=== PATIENT | female | born 1950 | race Caucasian/White ===

== ENCOUNTER 2023-09-14 08:30 | Outpatient (RCR) | payer MEDICARE, SELFPAY ==
--- NOTE | 2023-08-31 10:06 | PT.OPEX ---
[facility] [place] [facility] Eval PT [facility] Outpatient Eval Start: 08/31/23 07:24 Freq: Status: Active Protocol: Document 08/31/23 07:25 TOBIAS (Rec: 08/31/23 07:32 CLJessie [id number]) E-signed By Deonna Henning PT Physical Therapy Outpatient Evaluation Insurance Information Recert Due Date 11/25/23 Insurance Name [facility] Medical Diagnosis Genital Prolapse PFM Weakness Treating Diagnosis Cystocele/Bladder Prolapse PFM weakness Hip EXT/ABD/ER mm weakness Urinary Incontinence Referring MD [place]unaway Subjective Subjective Dolores reports having issues with sensation of heaviness and extra pressure at vaginal area with attempting to urinate. She denies any bowel issues, has a normal BM every day or every 2 days. She only occasionally will have an issue with incontinence, more of a feeling or urgency to urinate once the thought crosses her mind. She does wear a panty liner, but it usually remains dry. She gets up to urinate 1-2X/Night, can hold her urine normally about 2 hours. She has had 2 children, both delivered vaginally, no complications. She previously exercised 4X/Wk playing [employer] for about 45 min each. Because it was so hot this year, she did not ex as much. Is interested in learning some ex. She does drink coffee, only 1 cup per day, no alcohol or soda's. She drinks about 40-50 oz of water per day. No report of pain. Pain Comments Denies having pain Lt knee weakness, but no buckling or pain. She just doesn't trust it as much, difficult to sit to stand and put extra weight on her knees. She does A/D stairs reciprocally. Date of Last Physician Visit 08/23/23 Current Work Status Retired Precautions Treatment Precautions/Contraindications Hysterectomy Endometrial CA Atrial Fib Assessment Assessment/Impression 73 yo with DX of PFM Weakness and Bladder Prolapse. She presents with slightly reduced lumbar lordosis. She has no significant gait deviation. Good trunk AROM, reduced SLS Lt LE 5 second average. She is unable to sit to stand without use of at least one arm on chair arm, c/o feeling unstable in Lt knee. Her third and fourth attempt of sit to stand were without use of UE on chair. She has impaired strength at damien hip ABD/EXT/ER MMT score of 3+/5 damien. IND in bed mobility, ambulates without any AD. She is independent in all of her home chores and ADL's. She denies having more than occasional incontinence, but reports symptoms of urge urinary stress and sensation of prolapse. She does not have the sensation of falling out but states she does feel a heaviness and sometimes has a difficult time initiating a stream of urine. She will benefit from continued skilled physical therapy to educate in proper bladder health and food irritants, progressive core and pelvic/hip stability and strength and endurance tasks. An internal assessment will be completed at our next session. Thank you for this referral. Plan of Care Rehabilitation Potential Good Physical Therapy Goals In 8-10 visits, Dolores will be able to report: 1. Ability to HOLD urine for an average of 90 min 2. Ability to suppress Urge to urinate and not devine to the bathroom at least 30% of the time. 3. Report ability to consciously breath while lifting or sit to stand transition (avoid holding breath and increasing abdominal pressure) 4. Dry panty liner 5 days out of 7 5. IND in proper execution of entire HEP with emphasis on HOLD, alignmetn and reps 6. PFM strength score of at least 3/5/5//5 Coordination/Communication With Referral Source Treatment Plan/Direct Interventions Joint Mobilization,Manual Therapy,Neuromuscular Re-ed, Self-Care/Home Management, Therapeutic Activities, Therapeutic Exercises Frequency/Duration 1X/Wk for 10 days Patient Will Be Discharged From Therapy Completion of LTG(s),Skills Plateau,Independent w/HEP, Independently Progressing Evaluation Billing Untimed Code Treatment Minutes 32 Complexity Moderate Certification Information Initial Certification Date 08/31/23 Ending Certification Date 11/25/23 Provider Signature Shows Agreement With POC & Medical Necessity Physician Signature & Date Requested Please Sign/Date Here Physician Comment/Change : Physician NPI Number #
== END 2024-01-12 23:59 | disposition home or self-care (01) ==
PROVIDERS: PCP Internal Medicine; Visit Provider Obstetrics & Gynecology
DX: N81.89 Other female genital prolapse (principal); N81.10 Cystocele, unspecified; M62.81 Muscle weakness (generalized); R32 Unspecified urinary incontinence; Z51.89 Encounter for other specified aftercare
CPT/HCPCS: 97110; 97140; 97162; 97535

== ENCOUNTER 2023-10-05 08:42 | Outpatient (CLI) | payer MEDICARE, SELFPAY | END 2023-10-05 08:43 | disposition home or self-care (01) | LOC: NFLDREF 10-06 06:36 | PROVIDERS: PCP Internal Medicine; Referring Provider Internal Medicine; Visit Provider Internal Medicine | DX: E78.5 Hyperlipidemia, unspecified (principal) | CPT/HCPCS: 80061 ==

== ENCOUNTER 2023-10-12 11:14 | Outpatient (CLI) | payer MEDICARE, SELFPAY | END 2023-10-12 11:15 | disposition home or self-care (01) | LOC: NFLDREF 11:15 | PROVIDERS: PCP Internal Medicine; Visit Provider Internal Medicine | DX: M85.80 Other specified disorders of bone density and structure, unspecified site (principal) | CPT/HCPCS: 82306 ==

== ENCOUNTER 2023-11-05 13:35 | Outpatient (CLI) | payer MEDICARE, SELFPAY ==
--- NOTE | 2023-11-05 13:40 | CRLHL7_ITS ---
For Patients: As a result of the Cures Act, medical imaging exams and procedure reports are released immediately into your electronic medical record. You may view this report before your referring provider. If you have questions, please contact your health care provider. BILATERAL SCREENING MAMMOGRAM WITH COMPUTER-AIDED DETECTION AND TOMOSYNTHESIS TECHNIQUE: CC and MLO views were obtained. These mammographic images have been obtained using full-field digital technique. These mammographic images were interpreted with the benefit of computer-aided detection. Breast Tomosynthesis was used in this interpretation. COMPARISON FILM: 10/15/20, 05/25/18, 05/21/17. FINDINGS: There are scattered areas of fibroglandular density IMPRESSION: There is no radiographic evidence for malignancy. ASSESSMENT: BI-RADS Category 1: Negative RECOMMENDATION: Routine screening mammogram in 1 year. A lay language report of this examination will be provided to the patient. Nabor Arce M.D. Diagnostic Radiologist [email or web address] Transcribed: 4:40 p.mRahul garg/Dictated by: Nabor Arce MD @ 11/09/2023 8:53:00 AM (Electronically Signed)
== END 2023-11-05 13:36 | disposition home or self-care (01) ==
LOC: MAMMO 13:35
PROVIDERS: PCP Internal Medicine; Visit Provider Internal Medicine
DX: Z12.31 Encounter for screening mammogram for malignant neoplasm of breast (principal)
CPT/HCPCS: 77063; 77067

== ENCOUNTER 2025-03-16 09:40 | Outpatient (CLI) | payer MEDICARE, SELFPAY | END 2025-03-16 09:41 | disposition home or self-care (01) | LOC: NFLDREF 03-17 07:57 | PROVIDERS: PCP Internal Medicine; Referring Provider Internal Medicine; Visit Provider Internal Medicine | DX: M85.80 Other specified disorders of bone density and structure, unspecified site (principal); Z13.1 Encounter for screening for diabetes mellitus | CPT/HCPCS: 82306; 82947 ==

== ENCOUNTER 2025-04-04 12:51 | Outpatient (CLI) | payer MEDICARE, SELFPAY ==
--- NOTE | 2025-04-04 13:30 | CRLHL7_ITS ---
For Patients: As a result of the Century Cures Act, medical imaging exams and procedure reports are released immediately into your electronic medical record. You may view this report before your referring provider. If you have questions, please contact your health care provider. XR DXA Bone Mineral Density (BMD) Reason for exam: Other specified disorders of bone density. Current height (inches): 63.0 Weight (lbs.): 196.0 Menopause age: 54 Ethnicity: White 1. Have you had a previous hip or vertebral fracture? No. 2. Have you had any fractures during your adult life which did not result from significant trauma (e.g., auto accident)? No. 3. Did either of your parents have a hip fracture? No. 4. Do you smoke? No. 5. Have you ever taken Glucocorticoids? No. 6. Do you have rheumatoid arthritis? No. 7. Do you have secondary osteoporosis? No. 8. Do you drink 3 or more alcoholic drinks per day? No. 9. Are you being treated for osteoporosis? No. 10. Have you ever taken any of the following medications: Actonel, Evista, Fosamax, Miacalcin, Reclast, Boniva, Forteo, HRT (i.e., estrogen/hormone therapy), Protelos, Prolia, Vitamin D, Calcium, other ??? please specify. ANSWER: Yes; vitamin D. 11. Do you have any of the following medical conditions: Anorexia or bulimia, asthma or emphysema, end stage renal disease, hyperparathyroidism, any seizure disorders, cancer, inflammatory bowel diseases, hysterectomy, other ??? please specify. ANSWER: Yes; uterine cancer, hysterectomy. 12. What was your maximum height (inches)? 64. 13. Do you perform weightbearing exercise regularly? No. 14. Do you regularly consume dairy products? Yes. 15. Do you drink caffeinated beverages? No. 16. At what age did your period start? 11. 17. Are you premenopausal? No. 18. How many full-term pregnancies have you had? 2. 19. Have you ever missed your period for more than 6 months in a row (not including or menopause)? No. TECHNIQUE: Bone mineral density study was performed using the [employer]. FINDINGS: The results of the study expressed as bone mineral density (BMD) are as follows: Lumbar Spine L1 to L4: BMD: 0.986 g/cm2. T-score: -0.6. Z-score: 1.9. Neck Left: BMD: 0.712 g/cm2. T-score: -1.2. Z-score: 0.9. Right: BMD: 0.668 g/cm2. T-score: -1.6. Z-score: 0.5. Total Left: BMD: 0.864 g/cm2. T-score: -0.6. Z-score: 1.2. Right: BMD: 0.853 g/cm2. T-score: -0.7. Z-score: 1.1. IMPRESSION: Osteopenia. COMPARISON: Compared with scan of 08/13/2021, the bone mineral density has increased by 2.0% at the spine and increased by 2.5% at the hip. *Comparison exams done prior to 04/2020 were performed on different unit, [employer]. FRAX 10-year Fracture Risk Major Osteoporotic Fracture: 11% Hip Fracture: 2.4% Reported Risk Factors: [place] () Neck BMD = 0.668, BMI = 34.7. NABOR BROWNLEE M.D. Diagnostic Radiologist [email or web address] Transcribed: 12:[address]/Dictated by: Nabor Brownlee MD @ 04/05/2025 8:53:00 AM (Electronically Signed)
== END 2025-04-04 12:52 | disposition home or self-care (01) ==
LOC: RAD 12:52
PROVIDERS: PCP Internal Medicine; Visit Provider Internal Medicine
DX: M85.80 Other specified disorders of bone density and structure, unspecified site (principal); M85.89 Other specified disorders of bone density and structure, multiple sites
CPT/HCPCS: 77080

== ENCOUNTER 2025-07-04 13:12 | Outpatient (CLI) | payer MEDICARE, SELFPAY ==
--- NOTE | 2025-07-04 13:20 | CRLHL7_ITS ---
For Patients: As a result of the Century Cures Act, medical imaging exams and procedure reports are released immediately into your electronic medical record. You may view this report before your referring provider. If you have questions, please contact your health care provider. INDICATION: BILATERAL SCREENING MAMMMOGRAM, ASYMPTOMATIC 75 Y/O FEMALE COMPARISON: 11/05/2023, 10/15/2020, 05/25/2018 TECHNIQUE: Digital mammogram in CC and MLO projections including computer-aided detection (CAD) and tomosynthesis. BREAST COMPOSITION: There are scattered areas of fibroglandular density. FINDINGS: No suspicious findings. ASSESSMENT: BI-RADS 1 Negative RECOMMENDATION: Annual screening mammogram. A lay language report of this examination will be provided to the patient. Dictated by: Nabor Arce MD @ 07/05/2025 09:18:44 (Electronically Signed)
== END 2025-07-04 13:13 | disposition home or self-care (01) ==
LOC: MAMMO 13:12
PROVIDERS: PCP Internal Medicine; Visit Provider Internal Medicine
DX: Z12.31 Encounter for screening mammogram for malignant neoplasm of breast (principal)
CPT/HCPCS: 77063; 77067

== ENCOUNTER 2025-10-01 11:01 | Outpatient (CLI) | payer MEDICARE, SELFPAY | END 2025-10-01 11:02 | disposition home or self-care (01) | LOC: NFLDREF 10-05 10:30 | PROVIDERS: PCP Internal Medicine; Referring Provider Internal Medicine; Visit Provider Internal Medicine | DX: I10 Essential (primary) hypertension (principal) | CPT/HCPCS: 80048 ==

== ENCOUNTER 2025-10-21 15:31 | Observation (INO) | payer MEDICARE, SELFPAY ==
--- OUTSIDE RECORDS SUMMARY | 2025-10-21 15:34 | XMS_ITS | Clinical Summary ---
Author Organization [facility] Address [address] [address] Phone Care Team Providers Care Catalogue Illustrator Name Role Phone Elsewhere, Pcp Primary Care Provider Unavailabl e Allergies Active AllergyReactionsCriticalityNoted DateCommentsAmoxicillin-Pot Clavulanate NddahhtnJcvpuz32/29/2023 Facial swelling, itching Medications No known medications Social History Tobacco UseTypesPacks/DayYears UsedDateSmoking Tobacco: NeverSmokeless Tobacco: Never Tobacco Cessation:Counseling Given: Not Answered CommentsUnknownSex and Gender InformationValueDate RecordedSex Assigned at BirthNot on fileLegal FfyJpdjnt01/29/2023 11:02 AM CDTGender IdentityNot on fileSexual OrientationNot on file Last Filed Vital Signs Vital SignReadingTime TakenCommentsBlood Fbdfdinc626/80008/06/2023 11:15 AM CDT Gsrus755708/06/2023 11:15 AM QECNytedehmcip46.2 ??C (98.9 ??F)08/06/2023 11:15 AM CDTRespiratory Fwgh052108/06/2023 11:15 AM CDTOxygen Hsvtcbyvvj09%08/06/2023 11:15 AM CDTInhaled Oxygen Concentration--Gotkri73.1 kg (196 lb 6.9 oz)08/06/2023 11:15 AM CDTHeight--Body Mass Index-- Plan of Treatment Health MaintenanceDue DateLast DoneCommentsMEDICARE [id number] (Standing Order)01/26/1968TETANUS (Standing Order)01/26/1968Pneumococcal Vaccine: 50+ yrs (Standing Order) (1 of 1 - PCV)1999Shingrix (Zoster recombinant) vaccine (Standing Order) (1 of 2)1999DXA,FEMALES AGE 65 OR JWDJNEO7401/25/2014RSV Vaccination (60+ yrs) (Abrysvo/Arexvy) (1 - 1-dose 75+ series)4COVID-19 Single Dose07/09/2025Influenza Vaccine Seasonal (Standing Order) (#1)2025HPV Vaccine (Standing Order)Aged OutNo longer eligible based on patient's age to complete this topicHepatitis B Vaccine (Standing Order)Aged OutNo longer eligible based on patient's age to complete this topic Insurance Care Teams Team MemberRelationshipSpecialtyStart DateEnd Date Elsewhere, Pcp PCP - General08/06/23
[2025-10-21 15:52] VITALS: BP 153/104; PULSE 79; RESP 18; TEMP 36.8; O2SAT 96
--- NOTE | 2025-10-21 17:37 | ED_ITS ---
HPI - General Adult General Time Seen by Provider: 17:37 Date Seen: 10/21/25 Chief complaint: Dizziness/Vertigo Stated complaint: lighted headed Time Seen by Provider: 10/21/25 17:32 Source: patient, RN notes reviewed and old records reviewed Mode of arrival: ambulatory Limitations: no limitations History of Present Illness HPI narrative: This 75-year-old female is coming in with concern of sense of dizziness lightheadedness in feeling of imbalance. Earlier on Wednesday she would of maybe said she felt like she could fall over but isn't feeling that now. She h as a feeling of imbalance even just lying there. Earlier her eyes maybe felt like there were fuzzy but she can not say that there is really any change in vision now, no double vision. Her speech has been normal, she is been able to ambulate and function. Her symptoms have been present over a week. She was in the office for hypertension on October 02 for follow-up of a diagnosis of hypertension from August. Valsartan and hydrochlorothiazide were started on 08/23/2025. Very remote history of smoking in her early 20s. The note from October 02 was reviewed. She notes at times she will feel her heart pounding, not irregular, maybe some heaviness. She notes no shortness of breath, no cough or cold symptoms. She has not been ill, no fevers. She has hypertension, prediabetes, history of endometrial cancer status post hysterectomy, osteopenia, vitiligo, obesity, hemangioma of liver, history of uveitis, history of sarcoidosis, history of atrial fibrillation. Her BMP was checked in follow-up on October 01, no concerns. Related Data Home Medications ?Medication ?Instructions ?Recorded ?Confirmed Lactobacillus acidophilus PO .QD 08/09/23 10/02/25 calcium carb-magnesium ox,carb PO .QD 08/09/2310/02/ 5 [Devon-Mag] magnesium glycinate mg PO 08/08/25 10/02/25 vitamin B complex 1 tab PO QDAY 08/08/2510/21 vitamin D3 125 mcg (5,000 cap PO 08/23/25 10/02/25 unit)-vitamin K2 100 mcg capsule Previous Rx's ?Medication ?Instructions ?Recorded valsartan 80 1 tab PO QDAY #90 tabs 08/23 mg-hydrochlorothiazide 12.5 mg tablet Allergies Allergy/AdvReac Type Severity Reaction Status Date / Time hazelnut Allergy Severe Difficulty Verified 10/21/25 15:58 Breathing amoxicillin (From Augmentin) Allergy Mild Rash Verified 10/21/25 15:58 clavulanic acid (From Allergy Mild Rash Verified 10/21/25 15:58 Augmentin) Review of Systems Status of ROS: Reports: 6 or more systems reviewed and unremarkable except as noted in History and below [facility] (Updated 10/21/25 @ 22:16 by Moiz De Jesus MD) Hemangioma of liver (2013) ?D18.03 - Hemangioma of intra-abdominal structures (ICD-10) Obesity with body mass index 30 or greater ?E66.9 - Obesity, unspecified (ICD-10) Vitiligo ?L80 - Vitiligo (ICD-10) Osteopenia ?M85.80 - Other specified disorders of bone density and structure, unspecified site (ICD-10) History of endometrial cancer ?Z85.42 - Personal history of malignant neoplasm of other parts of uterus (ICD-10) Pelvic floor weakness in female ?N81.89 - Other female genital prolapse (ICD-10) Pre-diabetes ?R73.03 - Prediabetes (ICD-10) Essential hypertension ?I10 - Essential (primary) hypertension (ICD-10) History of uveitis (2003) ?Z86.69 - Personal history of other diseases of the nervous system and sense organs (ICD-10) History of sarcoidosis (2003) ?Z86.2 - Personal history of diseases of the blood and blood-forming organs and certain disorders involving the immune mechanism (ICD-10) History of atrial fibrillation (2013) ?Z86.79 - Personal history of other diseases of the circulatory system (ICD- 10) Surgical History History of lymph node biopsy (2007) ?Z98.890 - Other specified postprocedural states (ICD-10) History of hysterectomy (2018) ?Z90.710 - Acquired absence of both cervix and uterus (ICD-10) History of blepharoplasty (06/2018) ?Z98.890 - Other specified postprocedural states (ICD-10) Family History Paternal Grandmother Breast cancer Mother Diabetes Heart disease Father Diabetes Prostate cancer Social History Narrative: Lives alone in own apartment. Retired. . Supportive daughter, Shaylee, and son, Matt, both of whom she delegates to speak on her behalf for her healthcare if she is unable to do so. On admission to hospital 10/21/2025 she indicates that under the current circumstances she desires full resuscitation in event of cardiopulmonary demise if witnessed, but does not want to be kept alive in a persisted vegetative state. What is your current living situation?: I presently have a place to live In the past 12 months, utilities in danger of being shut off: no In past 12 months, lack of transportation kept you from medical appts, meetings, work, or getting things needed for daily living: no In the past 12 mos, have been you worried that your food would run out before you had money to buy more?: never true In the past 12 mos, the food you bought just didn't last and you didn't have money to buy more?: never true How often does anyone, including family, friends and others, physically hurt you : never How often does anyone, including family, friends and others, insult or talk down to you: never How often does anyone, including family, friends and others, threaten you with harm: never How often does anyone, including family, friends and others, scream or curse at you: never Exam Const: Vital Signs, click to edit/add: Vital Signs - 24 hr 10/21/25 15:52 10/21/25 18:05 10/21/25 19:38 Temperature 98.3 F Pulse Rate [Left P ulse Oximeter] 79 63 Respiratory Rate 18 18 Blood Pressure [Le ft Forearm] 153/104 H 142/96 H Pulse Oximetry 96 96 96 Oxygen Delivery Me thod Room Air Room Air This 75-year-old female is alert, interactive, no apparent distress. She is s een in exam room 2. Pupils equal round reactive, sclera clear, extraocular movements intact. On range of motion of her eyes, head impulse, cannot induce any symptoms. She has symmetrical facial function, speech is normal. Neck supple, no jugular venous distension, no adenopathy, no thyromegaly masses or nodules. She is able to sit up, no truncal ataxia. Lungs are clear, good air entry, wheezing or crackles, no tachypnea, no accessory muscle use. CV regular rate and rhythm, soft short systolic murmur heard right upper sternal border, 1 to 2/6, normal S1-S2. Abdomen is soft, nontender, nondistended, no organomegaly, rebound or guarding. Patient was ambulatory into the ED of her own accord. Strength is 5/5 and symmetric, no dysmetria noted on [id number], no arm drift. No tremors. No sensory changes noted on light touch sensation Documenting provider has reviewed patient's vital signs: yes Course Course ED Course: And does technically have This patient is presenting with lightheadedness/dizziness and sense of imbalance over week. She does have pre diabetes, hypertension and does technically have hyperlipidemia from a cholesterol panel in 2022. Her hemoglobin A1c was 6.2 in March of this year. I do think we need to look at head CT and CT angiograms of her head and neck to rule out subacute changes. Will talk to Neurology but do not need to do a stroke code given the timing being a week of symptoms. We do need to look at her labs. She has been on valsartan/hydrochlorothiazide do need to look at electrolytes and renal function. Will also do a thyroid on her. She had a normal highly sensitive troponin in triage, EKG looks reassuring. Will have her on cardiac monitoring looking for arrhythmia, pulse oximetry for hypoxia while here. She is hemodynamically stable at this time, nonfocal exam. Consultations Consultation #1: Have spoken to Dr. Le. She recommends that the patient have MR imaging done tomorrow, whether it be inpatient or outpatient. She states that the posterior circulation with the cerebellum can be extremely difficult to see on CT imaging. Patient does have risk factors and I do see history of atrial fibrillation in her chart. I do not see how she can conceivably get an outpatient MR done tomorrow, there is no way to have that ordered. She has subsequently decided to stay. Time: 20:44 Consultation #2: Have spoken to our hospitalist Dr. De Jesus, does agree to observe for MR in am. Did discuss with patient after and she was wanting to go home, she feels better than when she first came. She is going to call her daughter and talk about this. She is understanding that the MR brain is still going to recommended and that she will need to try to get this done outpatient, it may be missed for days in that scenario. Time: 21:05 Vital Signs Vital signs: Initial Vital Signs Temperature 98.3 F 10/21/25 15:52 Temperature Source Temporal Artery Scan 10/21/25 15:52 Pulse Rate 79 10/21/25 15:52 Pulse Rhythm Regular 10/21/25 15:52 Pulse Strength 3+ Normal 10/21/25 15:52 Respiratory Rate 18 10/21/25 15:52 Blood Pressure 153/104 H 10/21/25 15:52 Blood Pressure Mean 120 H 10/21/25 15:52 Blood Pressure Position Sitting 10/21/25 15:52 Pulse Oximetry 96 10/21/25 15:52 Oxygen Delivery Method Room Air 10/21/25 15:52 Vital Signs Temperature 98.3 F 10/21/25 15:52 Pulse Rate 79 10/21/25 15:52 Respiratory Rate 18 10/21/25 15:52 Blood Pressure 153/104 H 10/21/25 15:52 Pulse Oximetry 96 10/21/25 15:52 Oxygen Delivery Method Room Air 10/21/25 15:52 Temperature 98.3 F 10/21/25 15:52 Pulse Rate 63 10/21/25 19:38 Respiratory Rate 18 10/21/25 19:38 Blood Pressure 142/96 H 10/21/25 19:38 Pulse Oximetry 96 10/21/25 19:38 Oxygen Delivery Method Room Air 10/21/25 19:38 Medications Administered Medications: Discontinued Medications Generic Name Dose Route Start Last Admin Trade Name Freq PRN Reason Stop Dose Admin Aspirin 324 mg 10/21/25 21:58 10/21/25 22:23 Aspirin 81 Mg Tab.Chew PO 10/21/25 21:59 324 mg ONCE ONE Administration Medical Decision Making Lab Data Lab results reviewed: Yes I reviewed the patient's lab results Labs: Lab Results 10/21/25 10/21/25 Range/Units 16:06 18:05 WBC 5.71 (4.50-11.00) K/uL RBC 4.41 (4.00-5.20) m/uL Hgb 12.5 (12.0-16.0) gm/dL Hct 37.6 (33.0-51.0) % MCV 85 (80-100) fL MCH 28 (26-34) pg MCHC 33 (32-36) gm/dL RDW Coeff of Terrence 13.0 (11.5-15.5) % Plt Count 191 (140-440) K/uL Neut % (Auto) 69.3 (42.0-72.0) % Lymph % (Auto) 19.1 L (20-44) % [place] % (Auto) 9.1 (0.0-11.0) % Eos % (Auto) 1.9 (0.0-7.0) % Baso % (Auto) 0.4 (0.0-3.0) % Neut # (Auto) 3.96 (1.7-7.0) K/uL Lymph # (Auto) 1.10 (0.90-2.90) K/uL [place] # (Auto) 0.50 (0.00-0.90) K/UL Eos # (Auto) 0.11 (0.00-0.50) K/uL Baso # (Auto) 0.02 (0.00-0.30) K/uL Abs Immat Gran (auto) 0.01 (0.00-0.30) K/uL Imm/Tot Granulo (auto) 0.2 % Sodium 135 (135-149) mmol/L Potassium 3.8 (3.6-5.1) mmol/L Chloride 102 (96-114) mmol/L Carbon Dioxide 28 (20-32) mmol/L Anion Gap 5 L (7-15) mEq/L BUN 18 (7-30) mg/dL Creatinine 0.6 (0.5-1.5) mg/dL Estimated GFR 93 ml/min Glucose 108 (60-115) mg/dL Calcium 9.6 (8.4-10.6) mg/dL Magnesium 2.0 (1.5-2.6) mg/dL Total Bilirubin 0.5 (0.1-1.5) mg/dL AST 26 (12-35) U/L ALT 19 (4-35) U/L Alkaline Phosphatase 86 (40-150) U/L Troponin I < 0.01 (0.01-0.04) ng/mL POC Troponin I High Sensi 3.9 (2.9-13.0) pg/mL C-Reactive Protein 1.3 H (0.5-1.0) mg/dL Total Protein 7.4 (6.0-8.3) g/dL Albumin 4.3 (3.3-5.0) g/dL TSH 1.050 (0.270-4.200) uIU/mL Lab Acknowledgement Test Added POC Creatinine 0.8 (0.6-1.3) mg/dl Imaging Data CT scan - head: Attestation: I have reviewed the pertinent imaging results. Radiologist's impression: Patient: ADRIANNA FERNANDES Facility:?[facility] Patient ID:?[id number] Site Patient ID:?[id number]. Site :?1950 Study:?CT-Head WO-10/21/2025 6:33:15 PM Ordering Physician:?Feliciano Vidal Final Report: INDICATION: Dizziness TECHNIQUE: Head CT without contrast. COMPARISON: None. FINDINGS: Brain: No evidence of an acute territorial infarction or acute intracranial hemorrhage. There are a few foci of hypoattenuation in the periventricular white matter, most likely reflecting mild chronic microvascular ischemic changes. There is a curvilinear calcification anterior to the frontal horn of the right lateral ventricle on series 5, image 25. This is nonspecific and no prior imaging is available for comparison. The sulci and ventricles are appropriate for a patient of this age. No hydrocephalus, midline shift or herniation. Orbits: No acute abnormality. There is a linear calcification along the posterior aspect of the right orbit on series 5, image 16. Paranasal sinuses and mastoid air cells: There is a retention cyst in the left maxillary sinus. The paranasal sinuses and mastoid air cells are otherwise clear. Calvarium: No evidence of a calvarial fracture. IMPRESSION: 1. No acute intracranial abnormality. 2. Curvilinear calcification anterior to the frontal horn of the right lateral ventricle. This is nonspecific, but likely chronic in nature. If further evaluation of the head is required, an MRI of the brain is recommended. 3. There is also a linear calcification along the posterior aspect of the right orbit. This is also likely chronic. Correlation with any prior outside imaging, if available, is recommended. Please note that all CT scans at this facility use dose modulation, iterative reconstruction, and/or weight-based dosing when appropriate to reduce radiation dose to as low as reasonably achievable. Dictated by Anjel Watts MD @ 10/21/2025 6:40:12 PM (Electronic Signature) CT- Other: Attestation: I have reviewed the pertinent imaging results. Radiologist's impression: Patient: ADRIANNA FERNANDES Facility:?[facility] Patient ID:?[id number] Site Patient ID:?[id number]. Site :?1950 Study:?CT-Head Angio CTA HEAD AND NECK W ISOVUE 370-10/21/2025 6:34:47 PM Ordering Physician:?Feliciano Vidal Preliminary Report: Prelim report: No significant stenosis. No evidence of an aneurysm. There is a curvilinear calcification anterior to the frontal horn of the right lateral ventricle on series 5, image 259. This is nonspecific. There are pulmonary nodules in the upper lobes and mediastinal lymphadenopathy in the partially visualized upper chest, for example on series 5, image 890. Dictated by Anjel Watts MD @ 10/21/2025 6:53:56 PM Read by:?Anjel Watts MD @10/21/2025 6:54:49 PM ECG Data Attestation: I personally reviewed and interpreted this ECG as follows: (In the normal sinus rhythm, 75 beats per minute. No ischemia, no infarct.) Prior ECG tracings: not available for review Discharge Plan Discharge Clinical Impression: Dizziness, Imbalance Patient Disposition: Admitted As Observation Discharge Location: [facility]
--- NOTE | 2025-10-21 17:49 | CRLHL7_ITS ---
For Patients: As a result of the Century Cures Act, medical imaging exams and procedure reports are released immediately into your electronic medical record. You may view this report before your referring provider. If you have questions, please contact your health care provider. INDICATION: Dizziness, imbalance. TECHNIQUE: CTA head using intravenous contrast with bolus tracking, 3D angiographic rendering using maximum intensity projection (MIP) and images permanently archived. CTA neck using intravenous contrast with bolus tracking, 3D angiographic rendering using maximum intensity projection (MIP) and images permanently archived. FINDINGS: CTA head: There is normal opacification of the intracranial vasculature. There is no large vessel occlusion or significant intracranial stenosis. No aneurysm is identified. CTA neck: There is no significant carotid artery stenosis or dissection. There is no significant vertebral artery stenosis or dissection. There are numerous indeterminate nodules in the visualized lung apices. There is soft tissue thickening about both jazmyn and in the mediastinum primarily around the trachea, sub tracheal region. Scattered axillary lymph nodes also noted. IMPRESSION: No acute intracranial abnormality at CTA. No significant carotid or vertebral artery stenosis or dissection. Numerous pulmonary nodules, bilateral hilar and mediastinal soft tissue/lymphadenopathy. Recommend dedicated chest imaging for further evaluation. Please note that all CT scans at this facility use dose modulation, iterative reconstruction, and/or weight-based dosing when appropriate to reduce radiation dose to as low as reasonably achievable. Dictated by Elder Landry MD @ 10/21/2025 7:34:06 PM (Electronically Signed)
--- NOTE | 2025-10-21 17:50 | CT_ITS ---
Patient: ADRIANNA FERNANDES Facility:?[facility] Patient ID:?[id number] Site Patient ID:?[id number]. Site :?1950 Study:?CT-Head WO-10/21/2025 6:33:15 PM Ordering Physician:Padmini Vidal Final Report: INDICATION: Dizziness TECHNIQUE: Head CT without contrast. COMPARISON: None. FINDINGS: Brain: No evidence of an acute territorial infarction or acute intracranial hemorrhage. There are a few foci of hypoattenuation in the periventricular white matter, most likely reflecting mild chronic microvascular ischemic changes. There is a curvilinear calcification anterior to the frontal horn of the right lateral ventricle on series 5, image 25. This is nonspecific and no prior imaging is available for comparison. The sulci and ventricles are appropriate for a patient of this age. No hydrocephalus, midline shift or herniation. Orbits: No acute abnormality. There is a linear calcification along the posterior aspect of the right orbit on series 5, image 16. Paranasal sinuses and mastoid air cells: There is a retention cyst in the left maxillary sinus. The paranasal sinuses and mastoid air cells are otherwise clear. Calvarium: No evidence of a calvarial fracture. IMPRESSION: 1. No acute intracranial abnormality. 2. Curvilinear calcification anterior to the frontal horn of the right lateral ventricle. This is nonspecific, but likely chronic in nature. If further evaluation of the head is required, an MRI of the brain is recommended. 3. There is also a linear calcification along the posterior aspect of the right orbit. This is also likely chronic. Correlation with any prior outside imaging, if available, is recommended. Please note that all CT scans at this facility use dose modulation, iterative reconstruction, and/or weight-based dosing when appropriate to reduce radiation dose to as low as reasonably achievable. Dictated by Anjel Watts MD @ 10/21/2025 6:40:12 PM Signed by:?Anjel Watts MD @10/21/2025 6:40:12 PM (Electronic Signature)
[2025-10-21 18:05] VITALS: O2SAT 96
[2025-10-21 18:13] LABS: Hematocrit* 37.6 % (33.0-51.0); Hemoglobin* 12.5 gm/dL (12.0-16.0); Immature Granulocytes Abs Auto 0.01 K/uL (0.00-0.30); Immature Granulocytes Pct Auto 0.2 %; Mean Corpuscular HGB Conc 33 gm/dL (32-36); Mean Corpuscular Hemoglobin 28 pg (26-34); Mean Corpuscular Volume 85 fL (80-100); RDW Coefficient of Variation % 13.0 % (11.5-15.5); Red Blood Count* 4.41 m/uL (4.00-5.20); White Blood Count* 5.71 K/uL (4.50-11.00)
[2025-10-21 18:15] LABS: Lymphocytes Absolute Auto 1.10 K/uL (0.90-2.90)
[2025-10-21 18:16] LABS: Slide Review Reflex No
[2025-10-21 18:17] LABS: Creatinine, Point-of-Care* 0.8 mg/dl (0.6-1.3)
[2025-10-21 18:31] LABS: Albumin* 4.3 g/dL (3.3-5.0); Chloride* 102 mmol/L (96-114); Potassium* 3.8 mmol/L (3.6-5.1); Sodium* 135 mmol/L (135-149)
[2025-10-21 18:34] LABS: Alanine Aminotransferase* 19 U/L (4-35); Alkaline Phosphatase* 86 U/L (40-150); Anion Gap 5 mEq/L (7-15); Aspartate Amino Transferase* 26 U/L (12-35); Bilirubin Total* 0.5 mg/dL (0.1-1.5); Blood Urea Nitrogen* 18 mg/dL (7-30); Carbon Dioxide* 28 mmol/L (20-32); Creatinine* 0.6 mg/dL (0.5-1.5); Estimated Glomerular Filt Rate 93 ml/min; Total Protein* 7.4 g/dL (6.0-8.3)
[2025-10-21 18:35] LABS: Calcium* 9.6 mg/dL (8.4-10.6); Glucose* 108 mg/dL (60-115)
[2025-10-21 19:09] LABS: TSH With Reflex to FT4* 1.050 uIU/mL (0.270-4.200)
[2025-10-21 19:38] VITALS: BP 142/96; PULSE 63; RESP 18; O2SAT 96
--- NOTE | 2025-10-21 21:53 | P.IMHP_ITS ---
Assessment and Plan Assessment and plan (1) Imbalance: Problem comment: - onset 10/17/2025. - 10/21/2025: our physician in the emergency department spoke with Dr. Le, stroke neurologist, who recommends further assessment with MR imaging of the brain. Will order this for 10/22/2025. Stroke Neurology to reassess after MR imaging his back. - admit for observation, telemetry, repeat EKG, obtain echo, will give a single dose of aspirin 3 and 24 mg on evening of 10/21/2025 and then 81 mg p.o. thereafter until such time as it is deemed that this should be continued or discontinued. - check hemoglobin A1c, lipid panel, vitamin B12 level. - physical therapy and occupational therapy to assist with assessing and recommending. - continue with antihypertensive medication as she is presently on, valsartan and hydrochlorothiazide which was started in August 2025 - check orthostatic blood pressures and pulses Status: Acute (2) History of sarcoidosis: Problem comment: - Resolved, Dxed approx 2003 - CT angiogram of head and neck obtained 10/21/2025 incidentally noted numerous pulmonary nodules, bilateral hilar and mediastinal soft tissue/lymphadenopathy. No active symptoms presently. Consider additional assessment in outpatient setting after discharge from current hospitalization if warranted. Status: Acute Plan 1. Reviewed impression, plans, recommendations with patient 2. Answered her questions are satisfaction 3. She is agreeable with above stated plans and recommendations Total Time Spent Total Time Spent: 70 minutes Hospitalist- H&P: HPI History of Present Illness Date Seen: 10/21/25 Chief complaint: Imbalance Narrative: Dolores Mccracken is a 75 year old woman presents to the hospital emergency department today with the 45 day history of a sense of imbalance. Has not had any falls. Denies vertigo. Denies orthostasis. Has this sense whether supine, sitting, standing, or ambulating. Has a sense of ?feeling off. ? Admittedly has chronic tinnitus which is no different than usual. Denies hearing loss. Wonders if this is anxiety or if she has anxiety because of this. Has had intermittent sensation of thumping heart. Denies chest heaviness, pressure, tightness, pain. No syncope or near-syncope. Denies nausea or vomiting. Denies diaphoresis. Denies dyspnea. Denies dependent edema. Denies other focal motor neurologic deficits. With her condition not improving she decided to come in for further assessment. Review of Systems Status of ROS: Reports: 10 or more systems reviewed and unremarkable except as noted in History and below Medical Decision Making Medical Decision Making Has patient completed a Health Care Directive: No [facility] Medical History (Updated 10/21/25 @ 22:16 by Moiz De Jesus MD) Hemangioma of liver (2013) ?D18.03 - Hemangioma of intra-abdominal structures (ICD-10) Obesity with body mass index 30 or greater ?E66.9 - Obesity, unspecified (ICD-10) Vitiligo ?L80 - Vitiligo (ICD-10) Osteopenia ?M85.80 - Other specified disorders of bone density and structure, unspeci fied site (ICD-10) History of endometrial cancer ?Z85.42 - Personal history of malignant neoplasm of other parts of uterus (ICD-10) Pelvic floor weakness in female ?N81.89 - Other female genital prolapse (ICD-10) Pre-diabetes ?R73.03 - Prediabetes (ICD-10) Essential hypertension ?I10 - Essential (primary) hypertension (ICD-10) History of uveitis (2003) ?Z86.69 - Personal history of other diseases of the nervous system and sense organs (ICD-10) History of sarcoidosis (2003) ?Z86.2 - Personal history of diseases of the blood and blood-forming organs and certain disorders involving the immune mechanism (ICD-10) History of atrial fibrillation (2013) ?Z86.79 - Personal history of other diseases of the circulatory system (ICD- 10) Surgical History History of lymph node biopsy (2007) ?Z98.890 - Other specified postprocedural states (ICD-10) History of hysterectomy (2018) ?Z90.710 - Acquired absence of both cervix and uterus (ICD-10) History of blepharoplasty (06/2018) ?Z98.890 - Other specified postprocedural states (ICD-10) Family History Paternal Grandmother Breast cancer Mother Diabetes Heart disease Father Diabetes Prostate cancer Social History Narrative: Lives alone in own apartment. Retired. . Supportive daughter, Shaylee, and son, Matt, both of whom she delegates to speak on her behalf for her healthcare if she is unable to do so. On admission to hospital 10/21/2025 she indicates that under the current circumstances she desires full resuscitation in event of cardiopulmonary demise if witnessed, but does not want to be kept alive in a persisted vegetative state. What is your current living situation?: I presently have a place to live In the past 12 months, utilities in danger of being shut off: no In past 12 months, lack of transportation kept you from medical appts, meetings, work, or getting things needed for daily living: no In the past 12 mos, have been you worried that your food would run out before you had money to buy more?: never true In the past 12 mos, the food you bought just didn't last and you didn't have money to buy more?: never true How often does anyone, including family, friends and others, physically hurt you : never How often does anyone, including family, friends and others, insult or talk down to you: never How often does anyone, including family, friends and others, threaten you with harm: never How often does anyone, including family, friends and others, scream or curse at you: never Meds Home Medications and Allergies Home Medications ?Medication ?Instructions ?Recorded ?Confirmed ?Type Lactobacillus acidophilus PO .QD 08/09/23 10/02/25 His tory calcium carb-magnesium ox,carb PO .QD 08/09/23 5 History [Devon-Mag] magnesium glycinate mg PO 08/08/25 10/02/25 Hist ory vitamin B complex 1 tab PO QDAY 08/08/2510/21 History valsartan 80 1 tab PO QDAY #90 tabs 08/2310/21/25 Rx mg-hydrochlorothiazide 12.5 mg tablet vitamin D3 125 mcg (5,000 cap PO 08/23/25 10/02/25 His tory unit)-vitamin K2 100 mcg capsule Allergies Allergy/AdvReac Type Severity Reaction Status Date / Time hazelnut Allergy Severe Difficulty Verified 10/21/25 15:58 Breathing amoxicillin (From Augmentin) Allergy Mild Rash Verified 10/21/25 15:58 clavulanic acid (From Allergy Mild Rash Verified 10/21/25 15:58 Augmentin) Exam Narrative: Exam Narrative: I examine her in the emergency department. Vision and hearing are adequate. Oriented x4. Articulate. Cooperative. Friendly. Able to carry out meaningful conversations. Insightful. Thoughtful. Conjugate gaze. No nystagmus spontaneous or inducible. Pupils equally round and reactive to light and accommodation. Cranial nerves 3-12 grossly normal. Able to carry out complex tasks including calling her daughter on her cell phone without any difficulties. No tremor, asterixis, or ataxia. Independent with transfer, station, and gait. No other focal motor neurologic deficits of upper extremities or lower extremities. Normal rapid alternating movement. Normal finger to nose. Neck is supple. Midline trachea. No JVD or hepatojugular reflux. No carotid bruits. No head neck lymphadenopathy. Lungs are clear to auscultation without wheezing, rhonchi, rales. Chest wall excursions are full. No CVA tenderness. Regular heart rate and rhythm. Normal S1-S2. No murmur, gallop, rub. PMI not laterally displaced. Abdomen with active bowel sounds, soft, nontender. No rebound or guarding. Extremities without edema. Palpable pulses upper and lower extremities. Skin is warm, dry, intact. Const: Vital Signs, click to edit/add: Vital Signs - 24 hr 10/21/25 15:52 10/21/25 18:05 10/21/25 19:38 Temperature 36.8 C Pulse Rate [Left P ulse Oximeter] 79 63 Respiratory Rate 18 18 Blood Pressure [Le ft Forearm] 153/104 H 142/96 H Pulse Oximetry 96 96 96 Oxygen Delivery Me thod Room Air Room Air Hospitalist - H&P: Result Labs Labs: Short CBC 10/21/25 Range/Units 18:05 WBC 5.71 (4.50-11.00) K/uL Hgb 12.5 (12.0-16.0) gm/dL Hct 37.6 (33.0-51.0) % Plt Count 191 (140-440) K/uL BMP 10/21/25 18:05 Sodium 135 Potassium 3.8 Chloride 102 Carbon Dioxide 28 BUN 18 Creatinine 0.6 Glucose 108 Calcium 9.6 Cardiac Enzymes 10/21/25 Range/Units 18:05 Troponin I < 0.01 (0.01-0.04) ng/mL Liver Function 10/21/25 Range/Units 18:05 Total Bilirubin 0.5 (0.1-1.5) mg/dL AST 26 (12-35) U/L ALT 19 (4-35) U/L Alkaline Phosphatase 86 (40-150) U/L Albumin 4.3 (3.3-5.0) g/dL ECG Attestation: I personally reviewed and interpreted this ECG as follows: ECG interpretation date: 10/21/25 Prior ECG tracings: not available for review Interpretation: Normal sinus rhythm. Additionally telemetry while patient is in the emergency department demonstrates no dysrhythmia. Imaging CT scan - head: Radiologist's impression: No acute intracranial abnormalities. CT angiogram of head and neck: Radiologist's impression: No acute intracranial abnormalities noted. No significant carotid or vertebral artery stenosis or dissection. Incidentally noted are numerous pulmonary nodules, bilateral hilar and mediastinal soft tissue lymphadenopathy. Noteworthy is that patient is known to have a history of pulmonary sarcoidosis, which was deemed in remission about 10 years ago at [facility], [place], [place].
[2025-10-21] MEDS: ASPIRIN 81 MG TAB.CHEW 324 MG PO (22:23)
[2025-10-21 22:30] VITALS: O2SAT 96
[2025-10-21 22:33] VITALS: BP 149/84; PULSE 60; RESP 18; TEMP 36.7; O2SAT 96; BMI 35.9; BMI 36.0
[2025-10-21 23:59] VITALS: PULSE 61
--- NOTE | 2025-10-22 | CRLHL7_ITS ---
For Patients: As a result of the Century Cures Act, medical imaging exams and procedure reports are released immediately into your electronic medical record. You may view this report before your referring provider. If you have questions, please contact your health care provider. Indication: New imbalance. Technique: Multiplanar multisequence noncontrast MR images of the brain. Comparison: CT brain 10/21/2025. Findings: Minimal diffuse cerebral volume loss. No mass effect or midline shift. Minimal FLAIR hyperintensities in the supratentorial white matter, typical for chronic microvascular ischemic changes. Coarse calcification demonstrating susceptibility within the corpus callosum genu right of midline. No adjacent parenchymal edema or FLAIR hyperintensity. Punctate susceptibility along the left frontal operculum and posterior margin of the left ventricular atrium may be secondary to mineralization or chronic hemorrhage. No recent intracranial hemorrhage or pathologic extra-axial fluid collection. No diffusion restriction to suggest acute infarction. The major arterial flow voids of the skull base are preserved. Globes are symmetric. Mild paranasal sinuses are well aerated. Mastoid air cells are clear. Impression: 1. No acute intracranial abnormality. 2. Coarse calcification demonstrating susceptibility within the corpus callosum genu right of midline, favored to represent sequelae of remote insult. 3. Minimal chronic microvascular ischemic changes and diffuse cerebral volume loss. Dictated by Luis F Park MD @ 10/22/2025 8:17:01 AM (Electronically Signed)
[2025-10-22 02:34] VITALS: BP 151/78; PULSE 62; RESP 16; TEMP 36.4; O2SAT 96
[2025-10-22 06:00] VITALS: BP 164/95; BP 168/78; BP 174/83; PULSE 58; PULSE 60; PULSE 76
[2025-10-22 06:33] LABS: Cholesterol* 180 mg/dL (90-199); HDL Cholesterol* 59 mg/dL (>=50); Triglycerides* 92 mg/dL (40-149)
--- NOTE | 2025-10-22 07:03 | PC.NURSE ---
Pt alert and oriented x3. Afebrile. Pt denies pain, SOB, chest pain, and N/V. Pt denied dizziness throughout night. Pt is up SBA, voiding, and tolerating a regular diet.
[2025-10-22 07:23] LABS: Vitamin B12* 374 pg/mL (243-894)
[2025-10-22 08:30] VITALS: BP 150/87; PULSE 61; RESP 16; TEMP 36.6; O2SAT 95
[2025-10-22 08:37] VITALS: RESP 16; O2SAT 95
[2025-10-22] MEDS: VALSARTAN 80 MG TABLET PO (08:42)
[2025-10-22] MEDS: ASPIRIN 81 MG TABLET EC PO (08:43)
[2025-10-22] MEDS: SODIUM CHLORIDE 0.9 % (FLUSH) 10 ML SYRINGE 5 ML IVF (08:43)
[2025-10-22 09:16] VITALS: PULSE 87
--- NOTE | 2025-10-22 10:35 | P.IMPN_ITS ---
Assessment and Plan Assessment and plan (1) Imbalance: Problem comment: - onset 10/17/2025. Resolved without specific treatment. - 10/21/2025: our physician in the emergency department spoke with Dr. Le, stroke neurologist, who recommends further assessment with MR imaging of the brain. Will order this for 10/22/2025. Stroke Neurology to reassess after MR imaging his back. - admit for observation, telemetry, repeat EKG, obtain echo, will give a single dose of aspirin 3 and 24 mg on evening of 10/21/2025 and then 81 mg p.o. thereafter until such time as it is deemed that this should be continued or discontinued. - check hemoglobin A1c, lipid panel, vitamin B12 level. - physical therapy and occupational therapy to assist with assessing and recommending. - continue with antihypertensive medication as she is presently on, valsartan and hydrochlorothiazide which was started in August 2025 - check orthostatic blood pressures and pulses Status: Acute (2) Dizziness: Problem comment: Appears to have resolved Status: Acute (3) Essential hypertension: Problem comment: Dxed 09/01, valsartan/HCTZ started 09/01. Continue as outpatient Status: Acute (4) History of sarcoidosis: Problem comment: - Resolved, Dxed approx 2003 - CT angiogram of head and neck obtained 10/21/2025 incidentally noted numerous pulmonary nodules, bilateral hilar and mediastinal soft tissue/lymphadenopathy. No active symptoms presently. Consider additional assessment in outpatient setting after discharge from current hospitalization if warranted. Status: Acute (5) Hyperlipidemia: Problem comment: Discussed risks and benefits of statin therapy. After discussion she agrees to statin therapy trial to see if she tolerates it and to reduce her risk of cardiovascular and cerebrovascular disease events Status: Acute Plan Continue evaluation. Anticipate possible discharge to home later today if doing well and testing is reassuring Total Time Spent Total Time Spent: Total time spent today is 60 minutes in reviewing records, coordination of care, discussion with patient ongoing evaluation management of dizziness, cardiovascular risk factors. Subjective Date Seen: 10/22/25 Interval history: 75-year-old female admitted to the hospital with onset of imbalance, lightheadedness, fatigue, palpitations starting 4 days prior to admission, last Wednesday. Patient reports prior to this she was in her usual state of health and feeling well. She has not had recurrent episodes like this. She has not had any syncope or head injury or fever or other illness recently. She describes her symptoms as follows: She feels unsteady or unbalanced when she is walking around her home. She did not fall. Symptoms do not correlate with change of position. She did not feel worse when she would stand up from being supine or sitting. She did not notice any change in symptoms when she would turn her head or roll over in bed. She did not have a sense of spinning. She does not have shortness of breath. She does not have chest pain. She reports that at times she feels her heart pounding. It is not fast or irregular she is just aware of her heart beating hard. She does have a history of sarcoidosis. She has not been evaluated or treated for this for years because it has been felt to be in remission. She is aware that she has abnormal radiographic findings on her chest CT from this in the past and it was noted on admission that she was having upper lobe pulmonary nodules on her CT of the neck on admission. She specifically denies any new or changing pulmonary symptoms though she does acknowledge she has a little bit of a chronic cough which is unchanged. Physical therapy reports she is asymptomatic with evaluation and is quite stable on her feet Exam Narrative: Exam Narrative: She is alert and appears in no distress. Her speech is normal and fluent. She is oriented to her circumstances and gives her own history with good detail. Head is without apparent trauma. Eyes are normal. Pupils are equal round reactive to light. Extraocular movements are full. Visual patel are intact. There is no facial asymmetry. She has intact sensation her face. Oropharynx is normal. Tongue is midline. Neck is supple without mass or adenopathy. Respirations are clear to auscultation without wheezing rales or rhonchi. Cardiovascular: S1, S2, regular rate and rhythm. No murmur gallop or rub. Abdomen: Bowel sounds active. Abdomen is soft without tenderness or mass. Upper extremities with intact sensation and strength bilaterally. Shoulder flexion and extension, elbow flexion extension, wrist flexion and extension, finger extension and crystal growing technician strength are full and symmetric. [id number] is normal. Lower extremity strength is normal and symmetric in hip flexion, knee flexion and extension, ankle dorsiflexion and plantar flexion. Heel-eaton is normal. Sensation is normal. No significant edema. Intact peripheral pulses in all 4 extremities. No rash Const: Vital Signs, click to edit/add: Vital Signs - 24 hr 10/21/25 15:52 10/21/25 18:05 10/21/25 19:38 Temperature 36.8 C Pulse Rate Pulse Rate [Left P ulse Oximeter] 79 63 Pulse Rate [Pulse Oximeter] Pulse Rate [orthos tatic lying Pulse Oximeter] Pulse Rate [orthos tatic sitting Puls e Oximeter] Pulse Rate [orthos tatic standing Pul se Oximeter] Respiratory Rate 18 18 Blood Pressure [Le ft Arm] Blood Pressure [Le ft Forearm] 153/104 H 142/96 H Blood Pressure [or thostatic lying Le ft Arm] Blood Pressure [or thostatic sitting Left Arm] Blood Pressure [or thostatic standing Left Arm] Pulse Oximetry 96 96 96 Oxygen Delivery Me thod Room Air Room Air 10/21/25 22:30 10/21/25 22:33 10/21/25 23:59 Temperature 36.7 C Pulse Rate 61 Pulse Rate [Left P ulse Oximeter] Pulse Rate [Pulse Oximeter] 60 Pulse Rate [orthos tatic lying Pulse Oximeter] Pulse Rate [orthos tatic sitting Puls e Oximeter] Pulse Rate [orthos tatic standing Pul se Oximeter] Respiratory Rate 18 Blood Pressure [Le ft Arm] 149/84 H Blood Pressure [Le ft Forearm] Blood Pressure [or thostatic lying Le ft Arm] Blood Pressure [or thostatic sitting Left Arm] Blood Pressure [or thostatic standing Left Arm] Pulse Oximetry 96 96 Oxygen Delivery Me thod Room Air Room Air 10/22/25 02:34 10/22/25 06:00 10/22/25 08:30 Temperature 36.4 C 36.6 C Pulse Rate Pulse Rate [Left P ulse Oximeter] Pulse Rate [Pulse Oximeter] 62 61 Pulse Rate [orthos tatic lying Pulse Oximeter] 58 L Pulse Rate [orthos tatic sitting Puls e Oximeter] 60 Pulse Rate [orthos tatic standing Pul se Oximeter] 76 Respiratory Rate 16 16 Blood Pressure [Le ft Arm] 151/78 H 150/87 H Blood Pressure [Le ft Forearm] Blood Pressure [or thostatic lying Le ft Arm] 168/78 H Blood Pressure [or thostatic sitting Left Arm] 174/83 H Blood Pressure [or thostatic standing Left Arm] 164/95 H Pulse Oximetry 96 95 Oxygen Delivery Me thod Room Air Room Air 10/22/25 08:37 10/22/25 09:16 Temperature Pulse Rate 87 Pulse Rate [Left P ulse Oximeter] Pulse Rate [Pulse Oximeter] Pulse Rate [orthos tatic lying Pulse Oximeter] Pulse Rate [orthos tatic sitting Puls e Oximeter] Pulse Rate [orthos tatic standing Pul se Oximeter] Respiratory Rate 16 Blood Pressure [Le ft Arm] Blood Pressure [Le ft Forearm] Blood Pressure [or thostatic lying Le ft Arm] Blood Pressure [or thostatic sitting Left Arm] Blood Pressure [or thostatic standing Left Arm] Pulse Oximetry 95 Oxygen Delivery Me thod Room Air Labs Labs: Laboratory Results - last 24 hr 10/21/25 10/21/25 10/22/25 16:06 18:05 05:45 WBC 5.71 RBC 4.41 Hgb 12.5 Hct 37.6 MCV 85 MCH 28 MCHC 33 RDW Coeff of Terrence 13.0 Plt Count 191 Neut % (Auto) 69.3 Lymph % (Auto) 19.1 L [place] % (Auto) 9.1 Eos % (Auto) 1.9 Baso % (Auto) 0.4 Neut # (Auto) 3.96 Lymph # (Auto) 1.10 [place] # (Auto) 0.50 Eos # (Auto) 0.11 Baso # (Auto) 0.02 Abs Immat Gran (auto) 0.01 Imm/Tot Granulo (auto) 0.2 Sodium 135 Potassium 3.8 Chloride 102 Carbon Dioxide 28 Anion Gap 5 L BUN 18 Creatinine 0.6 Estimated GFR 93 Glucose 108 Hemoglobin A1c 5.9 H Calcium 9.6 Magnesium 2.0 Total Bilirubin 0.5 AST 26 ALT 19 Alkaline Phosphatase 86 Troponin I < 0.01 POC Troponin I High Sensi 3.9 C-Reactive Protein 1.3 H Total Protein 7.4 Albumin 4.3 Triglycerides 92 Cholesterol 180 LDL Cholesterol, Calc 103 H HDL Cholesterol 59 Vitamin B12 374 TSH 1.050 Lab Acknowledgement Test Added POC Creatinine 0.8 Imaging MR Brain: Radiologist's impression: Indication: New imbalance. Technique: Multiplanar multisequence noncontrast MR images of the brain. Comparison: CT brain 10/21/2025. Findings: Minimal diffuse cerebral volume loss. No mass effect or midline shift. Minimal FLAIR hyperintensities in the supratentorial white matter, typical for chronic microvascular ischemic changes. Coarse calcification demonstrating susceptibility within the corpus callosum genu right of midline. No adjacent parenchymal edema or FLAIR hyperintensity. Punctate susceptibility along the left frontal operculum and posterior margin of the left ventricular atrium may be secondary to mineralization or chronic hemorrhage. No recent intracranial hemorrhage or pathologic extra-axial fluid collection. No diffusion restriction to suggest acute infarction. The major arterial flow voids of the skull base are preserved. Globes are symmetric. Mild paranasal sinuses are well aerated. Mastoid air cells are clear. Impression: 1. No acute intracranial abnormality. 2. Coarse calcification demonstrating susceptibility within the corpus callosum genu right of midline, favored to represent sequelae of remote insult. 3. Minimal chronic microvascular ischemic changes and diffuse cerebral volume loss. ECG Attestation: I personally reviewed and interpreted this ECG as follows: (Normal electrocardiogram)
--- NOTE | 2025-10-22 10:49 | PM.DS1 ---
DS: Providers Provider Date Seen: 10/22/25 Date of admission: 10/21/25 21:50 Primary care physician: Lisa Harvey MD Admitting Clinician: Moiz De Jesus MD Attending Physician on discharge: Fermin Robins MD Date of Discharge: 10/22/25 DS: Diagnosis Discharge Diagnosis (1) Imbalance: Status: Acute Problem details: - onset 10/17/2025. Resolved without specific treatment. Brain MRI and preliminary echo are unremarkable. - check hemoglobin A1c, lipid panel, vitamin B12 level: See lab results, all borderline results - physical therapy and occupational therapy to assist with assessing and recommending. - continue with antihypertensive medication as she is presently on, valsartan and hydrochlorothiazide which was started in August 2025 - check orthostatic blood pressures and pulses (2) Dizziness: Status: Acute Problem details: Appears to have resolved. Evaluation suggests that this is not orthostatic lightheadedness, vertigo, significant neurologic impairment or intoxication. Outpatient follow-up to reassess. (3) Essential hypertension: Status: Acute Problem details: Dxed 09/01, valsartan/HCTZ started 09/01. Continue as outpatient (4) History of sarcoidosis: Status: Acute Problem details: - Resolved, Dxed approx 2003 - CT angiogram of head and neck obtained 10/21/2025 incidentally noted numerous pulmonary nodules, bilateral hilar and mediastinal soft tissue/lymphadenopathy. No active symptoms presently. Consider additional assessment in outpatient setting after discharge from current hospitalization if warranted. (5) Hyperlipidemia: Status: Acute Problem details: Discussed risks and benefits of statin therapy. After discussion she agrees to statin therapy trial to see if she tolerates it and to reduce her risk of cardiovascular and cerebrovascular disease events DS: Summary Hospital Course Hospital Course: 75-year-old female admitted to the hospital with onset of imbalance, lightheadedness, fatigue, palpitations starting 4 days prior to admission, last Wednesday. Patient reports prior to this she was in her usual state of health and feeling well. She has not had recurrent episodes like this. She has not had any syncope or head injury or fever or other illness recently. She describes her symptoms as follows: She feels unsteady or unbalanced when she is walking around her home. She did not fall. Symptoms do not correlate with change of position. She did not feel worse when she would stand up from being supine or sitting. She did not notice any change in symptoms when she would turn her head or roll over in bed. She did not have a sense of spinning. She does not have shortness of breath. She does not have chest pain. She reports that at times she feels her heart pounding. It is not fast or irregular she is just aware of her heart beating hard. She does have a history of sarcoidosis. She has not been evaluated or treated for this for years because it has been felt to be in remission. She is aware that she has abnormal radiographic findings on her chest CT from this in the past and it was noted on admission that she was having upper lobe pulmonary nodules on her CT of the neck on admission. She specifically denies any new or changing pulmonary symptoms though she does acknowledge she has a little bit of a chronic cough which is unchanged. Physical therapy reports she is asymptomatic with evaluation and is quite stable on her feet Status at Discharge Functional status at discharge: independent ambulation Overall status at discharge: patient is back to baseline Time Spent with Patient Time attestation: Total time spent providing and/or coordinating discharge services: Time spent: Greater than 30 minutes Exam Narrative: Exam Narrative: Normal neurologic examination. See progress note from today for details Const: Vital Signs, click to edit/add: Vital Signs - 24 hr 10/21/25 15:52 10/21/25 18:05 10/21/25 19:38 Temperature 36.8 C Pulse Rate Pulse Rate [Left P ulse Oximeter] 79 63 Pulse Rate [Pulse Oximeter] Pulse Rate [orthos tatic lying Pulse Oximeter] Pulse Rate [orthos tatic sitting Puls e Oximeter] Pulse Rate [orthos tatic standing Pul se Oximeter] Respiratory Rate 18 18 Blood Pressure [Le ft Arm] Blood Pressure [Le ft Forearm] 153/104 H 142/96 H Blood Pressure [or thostatic lying Le ft Arm] Blood Pressure [or thostatic sitting Left Arm] Blood Pressure [or thostatic standing Left Arm] Pulse Oximetry 96 96 96 Oxygen Delivery Me thod Room Air Room Air 10/21/25 22:30 10/21/25 22:33 10/21/25 23:59 Temperature 36.7 C Pulse Rate 61 Pulse Rate [Left P ulse Oximeter] Pulse Rate [Pulse Oximeter] 60 Pulse Rate [orthos tatic lying Pulse Oximeter] Pulse Rate [orthos tatic sitting Puls e Oximeter] Pulse Rate [orthos tatic standing Pul se Oximeter] Respiratory Rate 18 Blood Pressure [Le ft Arm] 149/84 H Blood Pressure [Le ft Forearm] Blood Pressure [or thostatic lying Le ft Arm] Blood Pressure [or thostatic sitting Left Arm] Blood Pressure [or thostatic standing Left Arm] Pulse Oximetry 96 96 Oxygen Delivery Me thod Room Air Room Air 10/22/25 02:34 10/22/25 06:00 10/22/25 08:30 Temperature 36.4 C 36.6 C Pulse Rate Pulse Rate [Left P ulse Oximeter] Pulse Rate [Pulse Oximeter] 62 61 Pulse Rate [orthos tatic lying Pulse Oximeter] 58 L Pulse Rate [orthos tatic sitting Puls e Oximeter] 60 Pulse Rate [orthos tatic standing Pul se Oximeter] 76 Respiratory Rate 16 16 Blood Pressure [Le ft Arm] 151/78 H 150/87 H Blood Pressure [Le ft Forearm] Blood Pressure [or thostatic lying Le ft Arm] 168/78 H Blood Pressure [or thostatic sitting Left Arm] 174/83 H Blood Pressure [or thostatic standing Left Arm] 164/95 H Pulse Oximetry 96 95 Oxygen Delivery Me thod Room Air Room Air 10/22/25 08:37 10/22/25 09:16 Temperature Pulse Rate 87 Pulse Rate [Left P ulse Oximeter] Pulse Rate [Pulse Oximeter] Pulse Rate [orthos tatic lying Pulse Oximeter] Pulse Rate [orthos tatic sitting Puls e Oximeter] Pulse Rate [orthos tatic standing Pul se Oximeter] Respiratory Rate 16 Blood Pressure [Le ft Arm] Blood Pressure [Le ft Forearm] Blood Pressure [or thostatic lying Le ft Arm] Blood Pressure [or thostatic sitting Left Arm] Blood Pressure [or thostatic standing Left Arm] Pulse Oximetry 95 Oxygen Delivery Me thod Room Air DS: Data Data Completed and Pending Labs on day of discharge: Labs from last 24 hours 10/22/25 10/21/25 10/21/25 05:45 18:05 16:06 WBC 5.71 RBC 4.41 Hgb 12.5 Hct 37.6 MCV 85 MCH 28 MCHC 33 RDW Coeff of Terrence 13.0 Plt Count 191 Neut % (Auto) 69.3 Lymph % (Auto) 19.1 L [place] % (Auto) 9.1 Eos % (Auto) 1.9 Baso % (Auto) 0.4 Neut # (Auto) 3.96 Lymph # (Auto) 1.10 [place] # (Auto) 0.50 Eos # (Auto) 0.11 Baso # (Auto) 0.02 Abs Immat Gran (auto) 0.01 Imm/Tot Granulo (auto) 0.2 Sodium 135 Potassium 3.8 Chloride 102 Carbon Dioxide 28 Anion Gap 5 L BUN 18 Creatinine 0.6 Estimated GFR 93 Glucose 108 Hemoglobin A1c 5.9 H Calcium 9.6 Magnesium 2.0 Total Bilirubin 0.5 AST 26 ALT 19 Alkaline Phosphatase 86 Troponin I < 0.01 POC Troponin I High Sensi 3.9 C-Reactive Protein 1.3 H Total Protein 7.4 Albumin 4.3 Triglycerides 92 Cholesterol 180 LDL Cholesterol, Calc 103 H HDL Cholesterol 59 Vitamin B12 374 TSH 1.050 Lab Acknowledgement Test Added POC Creatinine 0.8 Discharge Plan Discharge Disposition: Home, Self-Care Date of Admission: 10/21/25 21:50 Attending Provider on Discharge: Rivas Robins Primary Care Provider: Lisa Harvey Condition: Improved Anticipated Discharge Date/Time: 10/22/25 11:58 Discharge Medications: New rosuvastatin 10 mg tablet 10 mg PO DAILY Qty: 90 0RF Continued vitamin D3-vitamin K2 125 mcg (5,000 unit)-100 mcg capsule PO calcium carb-magnesium ox,carb [[place]on-Mag] PO .QD Lactobacillus acidophilus PO .QD vitamin B complex Tablet 1 tab PO QDAY magnesium glycinate 100 mg magnesium capsule PO valsartan-hydrochlorothiazide 80-12.5 mg tablet 1 tab PO DAILY Discharge Orders: Discharge Order (Routine); Ordered 10/22/25 Ordered By: Rivas Robins Activity Level: No Restrictions Discharge Diet: Regular Follow Up Appointments: Lisa Harvey MD [Primary Care Provider, Internal Medicine] Referral Note: Follow-up in 1-2 weeks Forms: [address] Info Instructions
[2025-10-22 10:56] VITALS: BP 154/79; PULSE 72; RESP 18; TEMP 36.5; O2SAT 96
--- NOTE | 2025-10-22 11:18 | REH.OT ---
Pt is mobilizing indep in room. Pt is completing ADLs indep in room. Pt has no concerns with ADLs/IADLs at this time. No OT warranted.
--- NOTE | 2025-10-22 13:38 | PC.NURSE ---
Pt discharged @ 1257, going back to home by self. Pt reported understanding of discharge instructions. Belonging and discharge forms signed. IV removed. Final room check complete.
== END 2025-10-22 12:57 | disposition home or self-care (01) ==
LOC: ED 21:31 → MEDSURG 21:51
PROVIDERS: Admitting Provider Internal Medicine; Emergency Provider Family Medicine; PCP Internal Medicine; Visit Provider Internal Medicine
DX: R26.89 Other abnormalities of gait and mobility (principal); I10 Essential (primary) hypertension; E78.5 Hyperlipidemia, unspecified; Z87.09 Personal history of other diseases of the respiratory system; R00.2 Palpitations
CPT/HCPCS: 36415; 70450; 70496; 70498; 70551; 80053; 80061; 82565; 82607; 82962; 83036; 83735; 84443; 84484; 85025; 86140; 93005; 93306; 94761; 97161; 99285; A9270; G0378; Q9967